=== PATIENT | male | born 1980 | race Caucasian/White ===

== ENCOUNTER 2021-03-16 23:42 | Emergency (ER) | payer OTHER ==
[~2021-03-16] VITALS: Ht 185.4 cm; Wt 90.4 kg
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
[2021-03-17 02:58] LABS: RSV AMPLIFICATION NEGATIVE (NEGATIVE)
[2021-03-17] MEDS ORDERED: KETOROLAC 30 MG/ML 1ML VIAL IV ONE (03:10)
[2021-03-17] MEDS ORDERED: NS 1,000 ML IV SCH (03:10)
[2021-03-17] MEDS ORDERED: ceFAZolin SOD 1 GM in D5W MINI-BAG PLUS 50 ML IV ONE (03:20)
[2021-03-17] MEDS ORDERED: DERMABOND TOPICAL SKIN ADHESIVE TOP ONE (03:25)
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
[2021-03-17 04:45] VITALS: BP 140/81
== END 2021-03-17 05:23 | disposition short-term general hospital (02) ==
LOC: M ED 23:42
DX: S02.642A Fracture of ramus of left mandible, initial encounter for closed fracture (principal); S51.811A Laceration without foreign body of right forearm, initial encounter; S70.11XA Contusion of right thigh, initial encounter; Y04.0XXA Assault by unarmed brawl or fight, initial encounter; Y92.019 Unspecified place in single-family (private) house as the place of occurrence of the external cause; Y93.9 Activity, unspecified; Y99.8 Other external cause status; M50.321 Other cervical disc degeneration at C4-C5 level; J01.00 Acute maxillary sinusitis, unspecified; K03.2 Erosion of teeth; F17.200 Nicotine dependence, unspecified, uncomplicated
CPT/HCPCS: 12001; 70450; 70486; 72125; 73090; 73120; 87631; 96361; 96365; 96375; 99285; J0690; J1885

== ENCOUNTER 2023-07-31 07:28 | Day surgery (SDC) | payer OTHER, SELFPAY ==
[~2023-07-31] VITALS: Ht 185.4 cm; Wt 85.2 kg
[~2023-07-31 07:28] MED LIST: ceFAZolin SOD 2 GM in IV 1 EA IV ONE
[2023-07-31] MEDS ORDERED: LR 1,000 ML IV SCH ×2 (07:35→10:55)
[2023-07-31] MEDS ORDERED: ONDANSETRON 4MG 2ML VIAL As Ordered ONE (09:47)
[2023-07-31] MEDS ORDERED: MIDAZOLAM INJ 2MG/2ML VIAL As Ordered ONE (09:47)
[2023-07-31] MEDS ORDERED: dexmedeTOMIDine (4MCG/ML)200MCG/50ML BTL (PRECEDEX) As Ordered ONE (09:47)
[2023-07-31] MEDS ORDERED: ROCURONIUM BROMIDE 50MG/5ML VIAL As Ordered ONE (09:47)
[2023-07-31] MEDS ORDERED: KETOROLAC 60MG 2ML VIAL As Ordered ONE (09:47)
[2023-07-31] MEDS ORDERED: ACETAMINOPHEN 1000MG 100ML IV BAG As Ordered ONE (09:47)
[2023-07-31] MEDS ORDERED: METOCLOPRAMIDE INJ 10MG/2ML VIAL As Ordered ONE (09:47)
[2023-07-31] MEDS ORDERED: SUGAMMADEX SODIUM 500 MG/5 ML VIAL (BRIDION) As Ordered ONE (09:47)
[2023-07-31] MEDS ORDERED: LIDOCAINE 2% 100MG/5ML SDV (FOR ANES.) As Ordered ONE (09:47)
[2023-07-31] MEDS ORDERED: fentaNYL 250 MCG/5 ML INJECTION As Ordered ONE (09:47)
[2023-07-31] MEDS ORDERED: propofoL 200 MG/20 ML VIAL As Ordered ONE (09:47)
[2023-07-31] MEDS ORDERED: DESFLURANE 240 ML INHALANT As Ordered ONE (10:05)
[2023-07-31] MEDS ORDERED: ONDANSETRON 4MG 2ML VIAL IV PRN (10:55)
[2023-07-31] MEDS ORDERED: HYDROMORPHONE HCL 0.5 MG/ 0.5 ML SYRINGE IV PRN (10:55)
[2023-07-31] MEDS ORDERED: fentaNYL 100 MCG/2 ML INJECTION IV PRN (10:55)
[2023-07-31] MEDS ORDERED: METOCLOPRAMIDE INJ 10MG/2ML VIAL IV PRN (10:55)
[2023-07-31] MEDS ORDERED: oxyCODONE 5MG TAB PO PRN (10:55)
[2023-07-31] MEDS ORDERED: NORCO, ANEXSIA 5/325MG TABLET (HYDROcodone/ACETAMINOPHEN) PO PRN (11:45)
[2023-07-31 11:52] VITALS: BP 123/78; TEMP 98.2; O2SAT 96
== END 2023-07-31 12:15 | disposition home or self-care (01) ==
LOC: M SDC 07:28
PROVIDERS: ATTEND Surgery
DX: K40.90 Unilateral inguinal hernia, without obstruction or gangrene, not specified as recurrent (principal)
CPT/HCPCS: 49650; C1781; J0131; J0665; J0690; J1100; J1885; J2250; J2405; J2765; J3010; S2900